=== PATIENT | male | born 1990 | race Caucasian/White ===

== ENCOUNTER 2019-03-09 11:39 | Emergency (ER) | payer SELFPAY ==
[~2019-03-09] VITALS: Ht 180.3 cm; Wt 103.0 kg
[2019-03-09 11:49] VITALS: BP 145/91
--- NOTE | 2019-03-09 11:53 | NUR ---
PT TO BED 3 WITH STEADY GAIT
--- NOTE | 2019-03-09 12:16 | NUR ---
DR. MONTES EVALUATING PT AT BEDSIDE.
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
--- NOTE | 2019-03-09 12:32 | NUR ---
XRAY AT BEDSIDE
[2019-03-09] MEDS: NACL 0.9% 1,000 ML IV ONE (12:46)
[2019-03-09] MEDS: METOCLOPRAMIDE 10 MG/2 ML INJ VIAL IVP ONE (12:47)
[2019-03-09] MEDS: PANTOPRAZOLE 40 MG INJ VIAL IVP ONE (12:47)
[2019-03-09 13:03] LABS: BASOPHILS % (AUTO) 0.5 % (0.0-2.0); EOSINOPHILS # (AUTO) 0.2 K/uL (0-0.4); EOSINOPHILS % (AUTO) 1.8 % (0.0-4.0); HEMATOCRIT 31.6 % (36-52); HEMOGLOBIN 10.8 g/dL (12.0-18.0); LYMPHOCYTES # (AUTO) 1.4 K/uL (2.0-11.5); LYMPHOCYTES % (AUTO) 14.8 % (20.5-51.1); MEAN CORPUSCULAR HEMOGLOBIN 33 pg (27-31); MEAN CORPUSCULAR HGB CONC 34 g/dL (33-37); MONOCYTES # (AUTO) 1.2 K/uL (0.8-1.0); MONOCYTES % (AUTO) 12.8 % (1.7-9.3); NEUTROPHILS # (AUTO) 6.8 K/uL (1.8-7.7); NEUTROPHILS % (AUTO) 70.1 % (42.2-75.2); PLATELET COUNT (AUTO) 199 K/uL (140-450); RED CELL DISTRIBUTION WIDTH 13.4 % (11.6-13.7); WHITE BLOOD COUNT (AUTO) 9.7 K/uL (4.8-10.8)
[2019-03-09 13:10] LABS: ALBUMIN 3.4 g/dL (3.4-5.0); CARBON DIOXIDE 28.7 mmol/L (21-32); POTASSIUM 3.7 mmol/L (3.5-5.1); TOTAL BILIRUBIN 0.6 mg/dL (0.0-1.0)
--- NOTE | 2019-03-09 13:16 | NUR ---
PT STATES UNABLE TO VOID YET BUT UNDERSTANDS THE NEED FOR URINE SAMPLE.
[2019-03-09 13:30] LABS: CREATININE 0.8 mg/dL (0.7-1.3)
--- NOTE | 2019-03-09 14:15 | NUR ---
Patient discharged with v/s stable. Written and verbal after care instructions given and explained. Patient alert, oriented and verbalized understanding of instructions. Ambulatory with steady gait. All questions addressed prior to discharge. ID band removed. Patient advised to follow up with PMD. Rx of prilosec and zofran given. Patient educated on indication of medication including possible reaction and side effects. Opportunity to ask questions provided and answered.
[2019-03-09 14:16] VITALS: BP 111/57
[2019-03-09 15:07] LABS: APPEARANCE,URINE CLEAR (CLEAR); BILIRUBIN,URINE 2+ (NEGATIVE); BLOOD, URINE NEGATIVE (NEGATIVE); COLOR,URINE YELLOW (YELLOW); LEUKOCYTE ESTERASE ,URINE NEGATIVE (NEGATIVE); NITRITE, URINE NEGATIVE (NEGATIVE); PH,URINE 6.5 (5.0-9.0); UGLUCOSE NEGATIVE (NEGATIVE)
[2019-03-09 15:20] LABS: RBC,URINE NONE SEEN /HPF (0-5); WBC,URINE NONE SEEN /HPF (0-5)
--- NOTE | 2019-03-11 13:37 | NUR ---
Late entry. Confirmed with RN that 0.9 NS IV completed at 1340
== END 2019-03-09 14:15 | disposition home or self-care (01) ==
LOC: MED 11:39
DX: K92.0 Hematemesis (principal); D64.9 Anemia, unspecified; R94.5 Abnormal results of liver function studies; F10.10 Alcohol abuse, uncomplicated
CPT/HCPCS: 36415; 71045; 80053; 81001; 83690; 85025; 93005; 96361; 96374; 96375; 99284; C9113; J2765; Q0092

== ENCOUNTER 2019-03-24 19:06 | Emergency (ER) | payer SELFPAY ==
[~2019-03-24] VITALS: Ht 167.6 cm; Wt 63.5 kg
[2019-03-24 19:08] VITALS: BP 133/101
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
--- NOTE | 2019-03-24 19:52 | NUR ---
Dr. Diaz examining patient.
[2019-03-24 20:14] VITALS: BP 133/101
--- NOTE | 2019-03-24 20:14 | NUR ---
PATIENT [facility]. PATIENT EXAMINED BY DR. CHAVEZ. PATIENT MEDICALLY CLEARED AND RELEASED IN CUSTODY IN STABLE CONDITION. ORIGINAL PRE-BOOK FORM GIVEN TO OFFICER MARY.
== END 2019-03-24 20:14 ==
LOC: MED 19:06
DX: S30.811A Abrasion of abdominal wall, initial encounter (principal); S60.811A Abrasion of right wrist, initial encounter; I10 Essential (primary) hypertension; Z02.89 Encounter for other administrative examinations; X58.XXXA Exposure to other specified factors, initial encounter; Y93.89 Activity, other specified; Y92.89 Other specified places as the place of occurrence of the external cause; Y99.8 Other external cause status
CPT/HCPCS: 99283

== ENCOUNTER 2023-01-25 15:13 | Emergency (ER) | payer BC ==
[~2023-01-25] VITALS: Ht 182.9 cm; Wt 116.7 kg
[2023-01-25 15:26] VITALS: BP 150/89; PULSE 95; RESP 20; TEMP 99.2; O2SAT 97
[2023-01-25] MEDS ORDERED: predniSONE 20 MG TAB PO ONE (17:25)
[2023-01-25] MEDS ORDERED: LORA10OD45 PO (17:30)
[2023-01-25] MEDS ORDERED: CEPH-588 PO (17:30)
[2023-01-25] MEDS ORDERED: PRED20TA5 PO (17:30)
[2023-01-25] MEDS ORDERED: DIPH25SG5 PO (17:30)
== END 2023-01-25 18:26 | disposition home or self-care (01) ==
LOC: MED 15:13
DX: S60.561A Insect bite (nonvenomous) of right hand, initial encounter (principal); L25.9 Unspecified contact dermatitis, unspecified cause; I10 Essential (primary) hypertension; Z79.899 Other long term (current) drug therapy; Z79.2 Long term (current) use of antibiotics; W57.XXXA Bitten or stung by nonvenomous insect and other nonvenomous arthropods, initial encounter; Y92.89 Other specified places as the place of occurrence of the external cause; Y93.89 Activity, other specified; Y99.8 Other external cause status
CPT/HCPCS: 99283; J7512